=== PATIENT | male | born 1955 | race Caucasian/White ===

== ENCOUNTER 2018-08-22 16:19 | Emergency (ER) | payer OTHER ==
[2018-08-22 16:26] VITALS: BP 128/82; PULSE 99; TEMP 98.3; BMI 21.6
--- NOTE | 2018-08-22 17:06 | PDOC ---
History of Present Illness - General Chief Complaint: RX Refill Stated Complaint: prescription refill Time Seen by Provider: 08/22/18 16:47 History Source: Patient Exam Limitations: No Limitations - History of Present Illness Initial Comments: 08/22/18 17:06 63y F hx of urinary retention presenst with complaint for med refill. pt notes that he has been able to urinate however the stream is diminishing since he has run out of his Flomax last . The patient denies any other abdominal pain, fever, chills, back pain, nausea, vomiting, lightheadedness. States that he is currently in between doctors has an appointment with a new doctor this coming Wednesday however they were unwilling to refill prescription without having seen the patient so the patient came to the ER for evaluation. Past History - Past Medical History Allergies/Adverse Reactions: Allergies Allergy/AdvReac Type Severity Reaction Status Date / Time No Known Allergies Allergy Verified 08/22/18 16:20 Home Medications: Ambulatory Orders Tamsulosin HCl [Flomax] 0.4 mg PO DAILY 08/22/18 Tamsulosin HCl [Flomax] 0.4 mg PO DAILY #14 capsule 08/22/18 COPD: No Disorders: Yes (stricture bladder neck,UTI) - Suicide/Smoking/Psychosocial Hx Smoking History: Never smoked Hx Alcohol Use: Yes (occasional wine) Drug/Substance Use Hx: No Review of Systems - Review of Systems Able to Perform ROS?: Yes Comments:: 08/22/18 17:26 ROS: denies fever/chills, abd pain, urinary retention, n/v, back pain, cp, sob, lightehadedness, dysuria. *Physical Exam - Vital Signs Last Vital Signs Temp Pulse Resp BP Pulse Ox 98.3 F 99 H 18 128/82 100 08/22/18 16:20 08/22/18 16:20 08/22/18 16:20 08/22/18 16:20 08/22/18 16:20 - Physical Exam Comments: 08/22/18 17:27 General: well appaering in no distress Abd: sfot notnender Card: rrr, no mrg pulm: cta bl Medical Decision Making - Medical Decision Making 08/22/18 17:27 pt given refil for flomax - no other complaints currentyl urination in a deminshed stream but able to pass urine so will defer futher workup *DC/Admit/Observation/Transfer Diagnosis at time of Disposition: Medication refill, Urinary retention - Discharge Dispostion Disposition: HOME Condition at time of disposition: Improved Decision to Admit order: No - Prescriptions Prescriptions: Tamsulosin HCl [Flomax] 0.4 mg PO DAILY #14 capsule - Referrals - Patient Instructions Printed Discharge Instructions: DI for Urinary Retention in Men Additional Instructions: Return to the emergency department immediately with ANY new, persistent or worsening symptoms. You MUST call and follow up with your doctor tomorrow for further evaluation of your symptoms. Results were discussed with you. Please make sure your doctor reviews the results of your emergency evaluation. If you had any xrays during your visit, it was read preliminarily by myself, a Radiologist will review it and if there are any additional findings we will call you. Print Language: BURMESE - Post Discharge Activity
== END 2018-08-22 17:28 | disposition home or self-care (01) ==
LOC: FER 16:19
DX: Z76.0 Encounter for issue of repeat prescription (principal); R33.9 Retention of urine, unspecified
CPT/HCPCS: 99281-25